=== PATIENT | female | born 1980 | race Caucasian/White ===

== ENCOUNTER 2023-04-19 04:21 | Emergency (ER) | payer OTHER ==
[2023-04-19 04:51] LABS: BLOOD UREA NITROGEN,BUN 9 mg/dL (7-18); CALCIUM 8.6 mg/dL (8.6-10.2); CARBON DIOXIDE,CO2 25 mmol/L (21-32); CHLORIDE,CL 103 mmol/L (100-110); CREATININE 0.9 mg/dL (0.55-1.02); ESTIMATED GFR 82 mL/min (>60); GLUCOSE RANDOM 103 mg/dL (80-116); POTASSIUM,K 3.5 mmol/L (3.5-5.3); SODIUM,NA 140 mmol/L (135-145)
[2023-04-19 04:52] LABS: BASOPHILS PERCENT AUTO 0.5 % (0.2-1.5); EOSINOPHILS ABSOLUTE AUTO 0.1 x10-3/uL (0.0-0.8); EOSINOPHILS PERCENT AUTO 1.3 % (0.6-8.1); HEMATOCRIT 31.5 % (34.2-48.2); HEMOGLOBIN 10.2 g/dL (11.4-15.5); LYMPHOCYTES ABSOLUTE AUTO 2.3 x10-3/uL (1.0-4.4); LYMPHOCYTES PERCENT AUTO 31.6 % (18.4-52.1); MEAN CORPUSCULAR HEMOGLOBIN 26.1 pg (23.9-33.9); MEAN CORPUSCULAR HGB CONC 32.2 g/dL (31.9-34.8); MEAN PLATELET VOLUME 7.4 fL (7.1-12.4); MONOCYTES ABSOLUTE AUTO 0.5 x10-3/uL (0.3-1.0); MONOCYTES PERCENT AUTO 6.7 % (4.4-15.7); NEUTROPHILS ABSOLUTE AUTO 4.4 x10-3/uL (1.5-6.3); NEUTROPHILS PERCENT AUTO 59.9 % (30.8-76.2); PLATELET COUNT,PLT 463 x10(3)uL (151-488); RED BLOOD CELL COUNT 3.89 x10(6)uL (3.60-5.20); RED CELL DISTRIBUTION WIDTH 14.2 % (12.3-16.5); WHITE BLOOD CELL COUNT,WBC 7.4 x10-3/uL (3.0-10.3)
[2023-04-19 04:57] LABS: A/G RATIO 0.8; ALANINE AMINOTRANSFERASE,ALT 30 U/L (12-36); ALBUMIN 3.1 g/dL (3.5-5.2); ALKALINE PHOSPHATASE 74 IU/L (56-112); ASPARTATE AMNIOTRANSFERASE,AST 21 IU/L (5-25); BILIRUBIN TOTAL 0.4 mg/dL (0.1-1.3); INR 0.95 (1.00-1.24); PROTHROMBIN TIME 9.9 sec (9.0-11.1)
[2023-04-19 04:59] LABS: PTT,PARTIAL THROMBOPLSTIN TIME 24.5 SECONDS (24.4-33.2)
[2023-04-19 05:01] LABS: C-REACTIVE PROTEIN < 0.50 mg/dL (<0.50); TROPONIN I < 4.0 pg/mL (4.0-60.3)
[2023-04-19] MEDS ORDERED: Aspirin 81 MG Tab.Chew PO ONE (05:11)
[2023-04-19] MEDS ORDERED: Iopamidol 755 Mg/ML 100 ML Bottle IV SCH (05:15)
[2023-04-19 07:58] LABS: BILIRUBIN,URINE NEGATIVE (NEGATIVE); GLUCOSE,URINE NORMAL (NORMAL); KETONES,URINE NEGATIVE (NEGATIVE); LEUKOCYTE ESTERASE,URINE NEGATIVE (NEGATIVE); NITRITE,URINE NEGATIVE (NEGATIVE); OCCULT BLOOD,URINE NEGATIVE (NEGATIVE); PROTEIN,URINE NEGATIVE (NEGATIVE); UROBILINOGEN,URINE NORMAL (NEGATIVE)
[2023-04-19 08:02] LABS: AMPHETAMINES SCREEN, URINE NEGATIVE (NEGATIVE); BARBITURATE SCREEN,URINE NEGATIVE (NEGATIVE); BENZODIAZEPINES SCREEN,URINE NEGATIVE (NEGATIVE); BUPRENORPHINE SCREEN,URINE NEGATIVE (NEGATIVE); METHADONE SCREEN, URINE NEGATIVE (NEGATIVE); METHAMPHETAMINE SCREEN, URINE NEGATIVE (NEGATIVE); OXYCODONE SCREEN,URINE NEGATIVE (NEGATIVE); THC SCREEN,URINE NEGATIVE (NEGATIVE)
[2023-04-19 08:03] LABS: APPEARANCE,URINE CLEAR (CLEAR); BACTERIA,URINE MODERATE (NS); COLOR,URINE YELLOW (YELLOW); SQUAMOUS EPITHELIAL CELLS,UR FEW (NS,R,O); WBC,URINE 0-5 (0-5)
== END 2023-04-19 07:20 ==
LOC: FB.ED 04:21
DX: R47.1 Dysarthria and anarthria (principal); R20.0 Anesthesia of skin; R48.2 Apraxia; Z88.5 Allergy status to narcotic agent
CPT/HCPCS: 36415; 70450; 70496; 70498; 80053; 80307; 81001; 82947; 84484; 85025; 85379; 85610; 85730; 86140; 93005; 99285; A9270; Q9967; 93010